=== PATIENT | male | born 2005 | race Caucasian/White ===

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

== ENCOUNTER 2024-02-02 13:02 | Emergency (ER) | payer BC ==
--- OUTSIDE RECORDS SUMMARY | 2024-02-02 13:06 | XMS REPORT | Continuity of Care Document ---
Author Name Unknown Address [address] [facility] [address] [place] [address] [facility] Address [address] [facility] [address] [place] [address] Care Team Providers Care Back Joiner Name Role Phone Fatemeh Mace MD Primary Care Physician Unavailable Pohng Mahan Attending Clinician Unavaila ble FOG_A_Provider Attending Clinician Unavailable Doctor Unassigned, [place] Attending Clinician U Jagdeep Wayne Attending Clinician [phone] Lab, Adc Fam Pob I Attending Clinician Unavailab Rohit Lawrence Attending Clinician [phone] ROHIT BOUDREAUX Attending Clinician Unavailable Fatemeh Mace MD Attending Clinician Ana vailable FOG_A_Provider Admitting Clinician Unavailable Payers Payer Name Policy Type Policy Number Effective Date Expirati on Date Source [place] [id number] 2021 00:00:00 Problems Condition Name Condition Details Condition Category Status Onset Date Resolution Date Last Treatment Date Treating Clinician Comments Source Pain of right wrist Pain of Right Wrist Problem Active 2021-03 00:00: 00 [facility] 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 Problem Active 2021-03 00:00: 00 [facility] Sprain of right wrist Sprain of Right Wrist Problem Active 08-30 00:00: 00 [facility] Allergies, Adverse Reactions, Alerts Allergy Name Allergy Type Status Severity Reaction(s) Onset Date Inactive Date Treating Clinician Comments Source NO KNOWN ALLERGIE S Drug Class Active [facility] Social History Social Habit Start Date Stop Date Quantity Comments Source History of Tobacco Use [facility] Sex Assigned At [facility] Smoking Status Start Date Stop Date Source Tobacco smoking consumption unknown [facility] Never Smoker [facility] Medications Ordered Medication Name Filled Medication Name Start Date Stop Date Current Medication? Ordering Clinician Indication Dosage Frequency Signature (SIG) Comments Components Source Diclofenac Sodium 75 MG Diclofenac Sodium 75 MG No 1{table t_as_ne eded} BID Diclofenac Sodium 75 MG Diclofenac Sodium 75 MG Diclofenac Sodium 75 MG No 1{table t_as_ne eded} BID Diclofenac Sodium 75 MG Diclofenac Sodium 75 MG Diclofenac Sodium 75 MG No 1{table t_as_ne eded} BID Diclofenac Sodium 75 MG ID NOW COVID-19 Test Kit USE DIRECTED TEST ID NOW COVID-19 Test Kit USE DIRECTED TEST No ID NOW COVID-19 Test Kit USE DIRECTED TEST [facility] diclofenac sodium 75 mg tablet,christ yed release TAKE ONE (1) TABLET(S) BY MOUTH TWICE A DAY. diclofenac sodium 75 mg tablet,christ yed release TAKE ONE (1) TABLET(S) BY MOUTH TWICE A DAY. No diclofenac sodium 75 mg tablet,del ayed release TAKE ONE (1) TABLET(S) BY MOUTH TWICE A DAY. [facility] ID NOW COVID-19 Test Kit USE DIRECTED TEST ID NOW COVID-19 Test Kit USE DIRECTED TEST No ID NOW COVID-19 Test Kit USE DIRECTED TEST [facility] Vital Signs Vital Name Observation Time Observation Value Comments S ource Height 2022-01-31 00:00:00 75 [in_i] [facility] BMI (Body Mass Index) 2022-01-31 00:00:00 28.7 kg/m2 [facility] Body Weight 2022-01-31 00:00:00 230 [lb_av] [facility] height 2021-12-23 13:45:00 72 [in_i] Commo n [facility] weight 2021-12-23 13:45:00 235 [lb_av] Comm on [facility] temperature 2021-12-23 13:45:00 97.7 [degF] Com [facility] bmi 2021-12-23 13:45:00 31.87 kg/m2 Comm on [facility] blood pressure systolic 2021-12-23 13:45:00 112 mm[Hg] [facility] blood pressure diastolic 2021-12-23 13:45:00 72 mm[Hg] [facility] height 2021-11-25 13:15:00 72 [in_i] Commo n [facility] weight 2021-11-25 13:15:00 235 [lb_av] Comm on [facility] temperature 2021-11-25 13:15:00 97.9 [degF] Com [facility] bmi 2021-11-25 13:15:00 31.87 kg/m2 Comm on [facility] blood pressure systolic 2021-11-25 13:15:00 114 mm[Hg] Common [facility] blood pressure diastolic 2021-11-25 13:15:00 76 mm[Hg] [facility] height 2021-11-11 10:45:00 72 [in_i] Commo n [facility] weight 2021-11-11 10:45:00 235 [lb_av] Comm on [facility] temperature 2021-11-11 10:45:00 97.2 [degF] Com [facility] bmi 2021-11-11 10:45:00 31.87 kg/m2 Comm on [facility] blood pressure systolic 2021-11-11 10:45:00 112 mm[Hg] Common Sp[facility] blood pressure diastolic 2021-11-11 10:45:00 68 mm[Hg] [facility] height 2021-11-01 10:00:00 72 [in_i] Commo n [facility] weight 2021-11-01 10:00:00 235.66 [lb_av] C omfransico [facility] temperature 2021-11-01 10:00:00 96.3 [degF] Com mon [facility] bmi 2021-11-01 10:00:00 31.96 kg/m2 Comm on [facility] blood pressure systolic 2021-11-01 10:00:00 114 mm[Hg] Common [facility] blood pressure diastolic 2021-11-01 10:00:00 74 mm[Hg] [facility] Height 2021-08-30 00:00:00 75 [in_i] [facility] BMI (Body Mass Index) 2021-08-30 00:00:00 28.7 kg/m2 [facility] Body Weight 2021-08-30 00:00:00 230 [lb_av] [facility] Procedures Procedure Date / Time Performed Performing Clinician Source XR, wrist, 3 or more view 2022-01-31 00:00:00 [facility] VACCINATIONS - CONSENTS, ELIGIBILITY, HISTORY 2021-10-26 05:01:00 Doctor Unassigned, [place] [facility] XR, wrist, 3 or more view 2021-08-30 00:00:00 [facility] ASSIGNMENT OF BENEFITS 2019-11-14 15:10:08 Docto r Unassigned, [place] [facility] Encounters Start Date/Time End Date/Time Encounter Type Admission Type Attending Clinicians Care Facility Care Department Encounter ID Source 2021-12-22 11:50:00 Outpatient Phong Mahan [facility] [id number] [facility] 2021-11-25 11:31:01 Outpatient Phong Mahan [facility] [id number] [facility] 2021-11-09 12:46:02 Outpatient Phong Mahan [facility] [id number] [facility] 2021-11-01 09:50:04 Outpatient Phong Mahan [facility] [id number] [facility] 2022-02-06 00:00:00 2022-02-06 00:00:00 Outpatient FOG_A_Provi kath [facility] A[facility] [id number] [facility] 2022-01-31 00:00:00 2022-01-31 00:00:00 Outpatient FOG_A_Provi kath AOSM AOSM [id number] [facility] 2022-01-31 00:00:00 2022-01-31 00:00:00 Jagdeep Betancur MD: [address] [place] [id number] , Ph. [phone] [facility] [place] [facility] [id number] [facility] 2021-12-23 00:00:00 2021-12-23 00:00:00 OFFICE VISIT EST PT LEVEL 3 [facility] [id number] [facility] 2021-11-25 00:00:00 2021-11-25 00:00:00 OFFICE VISIT EST PT [facility]EL [facility] [id number] [facility] 2021-11-23 00:00:00 2021-11-23 00:00:00 Outpatient FOG_A_Provi kath AOSM AOSM [id number] [facility] 2021-11-14 00:00:00 2021-11-14 00:00:00 Outpatient FOG_A_Provi kath AOS[facility] AOSM [id number] [facility] 2021-11-11 00:00:00 2021-11-11 00:00:00 OFFICE VISIT ESTAB PT LEVEL 4 [facility] [id number] [facility] 2021-11-01 00:00:00 2021-11-01 00:00:00 OFFICE VISIT NEW PT LEVEL 4 [facility] [id number] [facility] 2021-10-26 00:00:00 2021-10-26 00:00:00 Orders Only Doctor Unassigned, [place] [facility] [id number] [facility] 2021-10-10 00:00:00 2021-10-10 00:00:00 Outpatient FOG_A_Provi kath AOSM AOSM [id number] [facility] 2021-09-05 01:15:00 2021-09-05 01:15:00 Outpatient FOG_A_Provi kath AOSM AOSM [id number] [facility] 2021-08-30 04:39:00 2021-08-30 04:39:00 Outpatient FOG_A_Provi kath AOSM AOSM [id number] [facility] 2021-08-30 00:00:00 2021-08-30 00:00:00 Jagdeep Betancur MD: [address] [place] [address] , Ph. [phone] [facility] [place] [facility] [id number] [facility] 2021-08-30 00:00:00 2021-08-30 00:00:00 Outpatient Jagdeep Betancur [facility] A[facility] [id number] 2021-08-25 04:58:00 2021-08-25 04:58:00 Outpatient FOG_A_Provi kath AOSM AOSM [id number] [facility] 2021-08-19 11:36:00 2021-08-19 11:36:00 Outpatient FOG_A_Provi kath AOSM AOSM [id number] [facility] 2019-11-14 10:13:23 2019-11-14 10:33:23 Laboratory Only Lab, Adc Fam Pob I Rohit Boudreaux [facility] ..114 [id number] [facility] 2019-11-14 10:20:00 2019-11-14 10:20:00 Outpatient R ROHIT BOUDREAUX [facility] [id number] [facility] 2019-11-14 00:00:00 2019-11-14 00:00:00 Orders Only Doctor Unassigned, [place] [facility] ..114 [id number] [facility] 2019-11-14 00:00:00 2019-11-14 00:00:00 Letter (Out) Fatemeh Yeager [facility] ..114 [id number] [facility]
--- NOTE | 2024-02-02 13:51 | RAD REPORT ---
EXAM: Chest Single View HISTORY: CHEST PAIN COMPARISON: None. FINDINGS: LUNGS/PLEURA: The lungs are clear. No pleural effusions or pneumothorax. No pulmonary edema. MEDIASTINUM: The mediastinal silhouette is within normal limits. CARDIAC: The cardiac silhouette is within normal limits. UPPER ABDOMEN: No significant abnormality. BONES: No acute fracture. LINES/TUBES/OTHER: N/A IMPRESSION: No evidence of acute cardiopulmonary disease.
[2024-02-02 13:53] LABS: Absolute Lymphocytes (CBC) 1.4 K/uL (0.7-4.9); Absolute Neutrophil 5.1 K/uL (1.8-8.0); Basophils % 0.5 % (0-1.3); Eosinophils % 0.5 % (0-4.4); Hematocrit 47.3 % (39.6-49.0); Hemoglobin 15.7 g/dL (13.6-17.9); Lymphocytes % 18.7 % (15.3-44.8); MCH 30.7 pg (27.0-35.0); MCHC 33.3 g/dL (32.0-36.0); MCV 92.4 fL (80-100); MPV 10.2 fL (7.6-11.3); Monocytes % 13.4 % (3.3-12.3); Neutrophils % 66.9 % (41.7-73.7); Platelets 177 thou/uL (152-406); RBC Red Blood Cell Count 5.11 M/uL (4.33-5.43); Red Cell Distribution Width 12.9 % (12.1-15.2)
[2024-02-02] MEDS ORDERED: MAGNES/ALUMIN/SIMET 30ML UCUP ONE (14:08)
[2024-02-02] MEDS ORDERED: LIDOCAINE VISCOUS 2% 10ML ORAL SOLN ONE (14:09)
[2024-02-02 14:10] LABS: ALT/SGPT 26 U/L (16-61); AST/SGOT 21 U/L (15-37); Albumin 3.9 g/dL (3.4-5.0); Albumin/Globulin Ratio 1.1 (1.1-1.8); Alkaline Phosphatase 74 U/L (45-117); BUN Blood Urea Nitrogen 14 mg/dL (7-18); Bicarbonate 29 mEq/L (21-32); Bilirubin Direct 0.2 mg/dL (0-0.2); Bilirubin Indirect, Calculated 0.5 mg/dL (0.2-0.8); Bilirubin Total 0.7 mg/dL (0.2-1.0); Globulin 3.6 g/dL (2.3-3.5); Glomerular Filtration Rate 125 ml/min (=/>90); Glucose Level 82 mg/dL (74-106); Magnesium 2.2 mg/dL (1.6-2.4); Protein, Total 7.5 g/dL (6.4-8.2); Sodium Level 139 mEq/L (136-145)
[2024-02-02 14:21] LABS: Troponin High Sensitivity < 3.0 pg/mL (<58.9)
--- NOTE | 2024-02-02 14:40 | ER ---
Nurse's Notes [facility] Name: Randy Oropeza Age: 18 yrs Sex: Male : 2005 Arrival Date: 02/02/2024 Time: 13:02 Bed 7 Private MD: Diagnosis: Chest pain, unspecified;Gastro-esophageal reflux disease without esophagitis Presentation: 02/01 13:23 Chief complaint: Patient states: chest pressure x1 month. Last night felt more intense. tm6 Usually is a faint, dull, pressure in chest. Coronavirus screen: Client denies travel out of the [place] in the last 14 days. Ebola Screen: Patient negative for fever greater than or equal to 101.5 degrees Fahrenheit, and additional compatible Ebola Virus Disease symptoms Patient denies exposure to infectious person. Patient denies travel to an Ebola-affected area in the 21 days before illness onset. No symptoms or risks identified at this time. Initial Sepsis Screen: Does the patient meet any 2 criteria? No. Patient's initial sepsis screen is negative. Does the patient have a suspected source of infection? No. Patient's initial sepsis screen is negative. Risk Assessment: Do you want to hurt yourself or someone else? Patient reports no desire to harm self or others. Onset of symptoms was January 02, 2024. 13:23 Method Of Arrival: Ambulatory tm6 13:23 Acuity: ROME 3 tm6 Triage Assessment: 13:23 General: Appears in no apparent distress. Behavior is calm, cooperative. Pain: tm6 Complains of pain in chest Pain currently is 2 out of 10 on a pain scale. Quality of pain is described as dull, pressure, Pain began x1 month ago. EENT: No signs and/or symptoms were reported regarding the EENT system. Neuro: Level of Consciousness is awake, alert, obeys commands, Oriented to person, place, time, situation. Cardiovascular: Reports chest pain, since one month ago. Respiratory: Airway is patent Respiratory effort is even, unlabored, Respiratory pattern is regular, symmetrical. GI: No signs and/or symptoms were reported involving the gastrointestinal system. Abdomen is flat, non-distended. : No signs and/or symptoms were reported regarding the genitourinary system. Derm: No signs and/or symptoms reported regarding the dermatologic system. Musculoskeletal: No signs and/or symptoms reported regarding the musculoskeletal system. Historical: - Allergies: 13:22 No Known Allergies; tm6 - PMHx: 13:22 None; tm6 - PSHx: 13:22 None; tm6 - Immunization history:: Flu vaccine is not up to date. - Infectious Disease History:: Denies. - Social history:: Smoking status: Patient denies any tobacco usage or history of. Patient/guardian denies using alcohol. Screenin:43 [facility] ED Fall Risk Assessment (Adult) History of falling in the last 3 months, bp including since admission No falls in past 3 months (0 pts) Confusion or Disorientation No (0 pts) Intoxicated or Sedated No (0 pts) Impaired Gait No (0 pts) Mobility Assist Device Used No (0 pt) Altered Elimination No (0 pt) Score/Fall Risk Level 0 - 2 = Low Risk. Abuse screen: Denies threats or abuse. Denies injuries from another. Nutritional screening: No deficits noted. Tuberculosis screening: No symptoms or risk factors identified. Assessment: 13:30 General: Appears in no apparent distress. Behavior is calm, cooperative, appropriate bp for age. 14:43 Reassessment: Patient appears in no apparent distress at this time. Patient is alert, bp oriented x 3, equal unlabored respirations, skin warm/dry/pink. Vital Signs: 13:22 Resp 16; Temp 98.2(O); Weight 102.06 kg; Height 6 ft. 1 in. ; Pain 2/10; tm6 13:22 BP 128 / 61; Pulse 79; Pulse Ox 99% on R/A; MAP 80 mmHg; tm6 14:41 BP 117 / 65; Pulse 71; Resp 16; Pulse Ox 100% ; bp 13:22 Body Mass Index 29.68 (102.06 kg, 185.42 cm) - Percentile 94.1 % tm6 13:22 Pain Scale: Adult tm6 ED Course: 13:06 Patient arrived in ED. mr 13:07 Madhuri Alcantara PA-C is PHCP. sb4 13:07 Han Joiner MD is Attending Physician. sb4 13:23 Arm band placed on right wrist. tm6 13:24 Triage completed. tm6 13:43 XRAY Chest (1 view) In Process Unspecified. EDMS 13:43 Basic Metabolic Panel Sent. bc6 13:43 CBC with Diff Sent. bc6 13:43 LFT's Sent. bc6 13:43 Magnesium Sent. bc6 13:43 Troponin HS Sent. bc6 13:43 Initial lab(s) drawn, by me, sent to lab. EKG done, by ED staff, reviewed by Madhuri Alcantara PA-C. Inserted saline lock: 20 gauge in left antecubital area, using aseptic technique. Blood collected. Flushed with 10 mL NS. 13:58 Maximus Lake, RN is Primary Nurse. bp 14:38 Han Joiner MD is Referral Physician. sb4 14:43 Patient has correct armband on for positive identification. Provided Education on: n/a. bp Client placed on continuous cardiac and pulse oximetry monitoring. NIBP monitoring applied. Pulse ox on. NIBP on. 14:43 No provider procedures requiring assistance completed. IV discontinued, intact, bp bleeding controlled, No redness/swelling at site. Pressure dressing applied. Patient maintains SpO2 saturation greater than 95% on room air. Administered Medications: 14:10 Drug: GI Cocktail without - (Maalox PO 30 ml, Lidocaine Mucous Membrane 2 % 15 bp ml) PO once Route: PO; 14:41 Follow up: Response: No adverse reaction bp Medication: 14:43 VIS not applicable for this client. bp Outcome: 14:39 Discharge ordered by . sb4 15:02 Discharged to home ambulatory, with family, bp 15:02 Condition: stable 15:02 Discharge instructions given to patient, Instructed on discharge instructions, follow up and referral plans. medication usage, Demonstrated understanding of instructions, follow-up care, medications, Prescriptions given X 1, 15:02 Patient left the ED. bp Signatures: Dispatcher [employer] EDDC Shruthi Chinchilla, Reg Reg mr Maximus Lake, RN RN Madhuri Lunsford PA-C PA-C sb4 Aaliyah Munoz Tawney, RN RN tm6
--- NOTE | 2024-02-02 14:40 | EDPHYS ---
Physician Documentation [facility] Name: Randy Oropeza Age: 18 yrs Sex: Male : 2005 Arrival Date: 02/02/2024 Time: 13:02 Bed 7 Private MD: ED Physician Han Joiner HPI: 02/01 13:29 This 18 yrs old Male presents to ER via Ambulatory with complaints of Chest Pressure. sb4 13:29 patient reports intermittent chest pressure for a few months now. states that it got sb4 worse last night after thanksgiving. denies any nausea, vomiting, diarrhea, sob, fever. denies any medical history or daily medications. no alleviating or aggravating factors. Historical: - Allergies: 13:22 No Known Allergies; tm6 - PMHx: 13:22 None; tm6 - PSHx: 13:22 None; tm6 - Immunization history:: Flu vaccine is not up to date. - Infectious Disease History:: Denies. - Social history:: Smoking status: Patient denies any tobacco usage or history of. Patient/guardian denies using alcohol. ROS: 13:29 Constitutional: Negative for fever, chills, and weight loss, sb4 13:29 Cardiovascular: Positive for chest pressure, 13:29 All other systems are negative, Exam: 13:29 Constitutional: This is a well developed, well nourished patient who is awake, alert, sb4 and in no acute distress. Head/Face: Normocephalic, atraumatic. Eyes: Extra-ocular motions intact. Periorbital areas with no swelling, redness, or edema. ENT: Mucous membranes moist. Cardiovascular: Regular rate and rhythm with a normal S1 and S2. Respiratory: No increased work of breathing, no retractions or nasal flaring. Abdomen/GI: Soft, non-tender, no distension. Skin: Warm, dry with normal turgor. Normal color with no rashes, no lesions, and no evidence of cellulitis. Vital Signs: 13:22 Resp 16; Temp 98.2(O); Weight 102.06 kg; Height 6 ft. 1 in. ; Pain 2/10; tm6 13:22 BP 128 / 61; Pulse 79; Pulse Ox 99% on R/A; MAP 80 mmHg; tm6 14:41 BP 117 / 65; Pulse 71; Resp 16; Pulse Ox 100% ; bp 13:22 Body Mass Index 29.68 (102.06 kg, 185.42 cm) - Percentile 94.1 % tm6 13:22 Pain Scale: Adult tm6 MDM: 13:28 Medical Screening Exam initiated tayla 14:24 Data reviewed: vital signs, nurses notes, lab test result(s), EKG, radiologic studies, sb4 and as a result, I will discharge patient. Counseling: I had a detailed discussion with the patient and/or guardian regarding the historical points, exam findings, and any diagnostic results supporting the discharge/admit diagnosis, lab results, radiology results, to return to the emergency department if symptoms worsen or persist or if there are any questions or concerns that arise at home. 02/01 13:29 Order name: Basic Metabolic Panel; Complete Time: 14:22 sb4 02/01 13:29 Order name: CBC with Diff; Complete Time: 13:55 sb4 02/01 13:29 Order name: LFT's; Complete Time: 14:22 sb4 02/01 13:29 Order name: Magnesium; Complete Time: 14:22 sb4 02/01 13:29 Order name: Troponin HS; Complete Time: 14:22 sb4 02/01 13:29 Order name: XRAY Chest (1 view); Complete Time: 13:55 sb4 02/01 13:29 Order name: Cardiac monitoring; Complete Time: 14:02 sb4 02/01 13:29 Order name: EKG - Nurse/Tech; Complete Time: 13:42 sb4 02/01 13:29 Order name: IV Saline Lock; Complete Time: 13:43 sb4 02/01 13:29 Order name: Labs collected and sent; Complete Time: 14:05 sb4 02/01 13:29 Order name: O2 Per Protocol; Complete Time: 14:02 sb4 02/01 13:29 Order name: O2 Sat Monitoring; Complete Time: 14:02 sb4 EC: Rate is 77 beats/min. Rhythm is regular, Normal Sinus Rhythm. GA interval is normal at sb4 174 msec. QRS interval is normal at 104 msec. QT interval is normal at 344 msec. No Q waves. T waves are Normal. No ST changes noted. Clinical impression: Normal ECG and No evidence of ischemia. Interpreted by me. Reviewed by me. Administered Medications: 14:10 Drug: GI Cocktail without - (Maalox PO 30 ml, Lidocaine Mucous Membrane 2 % 15 bp ml) PO once Route: PO; 14:41 Follow up: Response: No adverse reaction bp Disposition Summary: 02/02/24 14:39 Discharge Ordered Notes: Location: Home sb4 Problem: an ongoing problem sb4 Symptoms: have improved sb4 Condition: Stable sb4 Diagnosis - Chest pain, unspecified sb4 - Gastro-esophageal reflux disease without esophagitis sb4 Followup: sb4 - With: Private Physician - When: As needed - Reason: Recheck today's complaints, Re-evaluation by your physician Discharge Instructions: - Discharge Summary Sheet sb4 - Food Choices for Gastroesophageal Reflux Disease, Adult sb4 - Gastroesophageal Reflux Disease, Adult sb4 - Nonspecific Chest Pain, Adult, [id number] sb4 Forms: - Patient Portal Instructions sb4 - Leadership Thank You Letter sb4 Prescriptions: - Protonix 40 mg Oral Tablet - take 1 tablet ORAL route once daily; 30 tablet; Refills: 0, Product Selection sb4 Permitted Signatures: Dispatcher [employer] EDMS Han Joiner MD MD cha Peltier, Brian, RN RN Madhuri Lunsford PA-C PALove sb4 Brice Duque RN RN tm6 Corrections: (The following items were deleted from the chart) 13:29 13:29 BASIC METABOLIC PANEL+C.LAB.BRZ ordered. EDMS EDMS 13: 13:29 CBC+H.LAB.BRZ ordered. EDMS EDMS 13:29 13:29 HEPATIC FUNCTION+C.LAB.BRZ ordered. EDMS EDMS 13: 13:29 MAGNESIUM+C.LAB.BRZ ordered. EDMS EDMS 13:29 13:29 Troponin High Sensitivity+C.LAB.BRZ ordered. EDMS EDMS 13:29 13:29 Chest Single View+RAD.RAD.BRZ ordered. EDMS EDMS
[2024-02-02 16:42] VITALS: TEMP 98.2
[2024-02-02 16:47] VITALS: BP 117/65; O2SAT 100
--- NOTE | 2024-02-04 14:15 | EKG ---
Test Date: 2024-02-02 Test Time: 13:36:24 Certified Pest Control Technician: ALEC MEASUREMENT RESULTS: Intervals: Rate: 77 IA: 174 QRSD: 104 QT: 344 QTc: 389 [place]: P: 64 IA: 174 QRS: 52 T: 43 INTERPRETIVE STATEMENTS: Normal sinus rhythm Normal ECG No previous ECG available for comparison Electronically Signed On 02-04-24 14:12:53 NANOFABRICATION SPECIALIST by Raymon Jurado
== END 2024-02-02 15:02 | disposition home or self-care (01) ==
LOC: ER 13:02
DX: K21.9 Gastro-esophageal reflux disease without esophagitis (principal)
CPT/HCPCS: 36415; 71045; 80048; 80076; 83735; 84484; 85025; 93005